=== PATIENT | female | born 1950 | race Native Hawaiian/Other Pacific Islander ===

== ENCOUNTER 2016-03-23 10:05 | Outpatient (CLI) | payer OTHER | END 2016-03-23 19:28 | disposition home or self-care (01) | LOC: RAD 10:05 | DX: Z13.820 Encounter for screening for osteoporosis (principal); M85.89 Other specified disorders of bone density and structure, multiple sites ==

== ENCOUNTER 2018-11-06 10:27 | Outpatient (CLI) | payer OTHER | END 2018-11-06 22:54 | disposition home or self-care (01) | LOC: RAD 10:27 | DX: M25.552 Pain in left hip (principal) ==